=== PATIENT | male | born 1940 | race Caucasian/White ===

== ENCOUNTER 2016-10-15 13:41 | Emergency (ER) | payer OTHER ==
[~2016-10-15] VITALS: Ht 182.9 cm; Wt 118.0 kg
[~2016-10-15 13:41] MED LIST: LORA0.5T PO; MAGN500T4 PO; ST J81CH PO; TYLE500T PO; ULTR50TA PO
[2016-10-15 13:43] VITALS: BP 169/99; PULSE 89; RESP 17; TEMP 97.8; O2SAT 99
--- NOTE | 2016-10-15 14:12 | PD ---
Physical Exam Date Seen by Provider: Oct 15, 2016 Time Seen by Provider: 14:10 Narrative 76 year old male presents to the emergency department after a trip and fall. Patient hit his head. He reports laceration to the forehead. He also has low back pain. No LOC. Patient is awaiting bed placement. Data Data Last Documented VS Vital Signs Date Time Temp Pulse Resp B/P Pulse Ox O2 Delivery O2 Flow Rate FiO2 10/15/16 13:43 97.8 89 17 169/99 99 MDM Supervised Visit with TERRENCE: Cristela Mondragon Oct 15, 2016 14:12
--- NOTE | 2016-10-15 14:26 | PD ---
HPI Chief Complaint: Fall Time Seen by Provider: 14:19 Travel History International Travel<30 days: No Contact w/Intl Traveler<30days: No Traveled to known affect area: No History of Present Illness HPI 76-year-old male here with complaint of laceration after fall. Patient tripped and fell, falling forward and hitting his forehead. No LOC. He denies any headache, nausea vomiting. No neck pain. He notes chronic low back pain which is slightly worse but he has not had to take anything for it. No numbness or tingling or loss of function. Patient has laceration above the left eyebrow prompting ER visit. PFSH Past Medical History Hx Anticoagulant Therapy: Yes (ASPIRIN 81 MG NIGHTLY) Anxiety: Yes High Cholesterol: Yes Diminished Hearing: No Hypertension: Yes Past Surgical History Tonsillectomy: Yes Social History Alcohol Use: No Tobacco Use: No Substance Use: No Allergies-Medications (Allergen,Severity, Reaction): Coded Allergies: No Known Allergies (Verified , 10/15/16) Reported Meds & Prescriptions Reported Meds & Active Scripts Active Reported Ultram (Tramadol HCl) 50 Mg Tab 50 Mg PO Q4H PRN Lorazepam 0.5 Mg Tab 0.5 Mg PO HS Magnesium 500 Mg Tab 500 Mg PO DAILY Tylenol (Acetaminophen) 500 Mg Tab 500 Mg PO TID Aspirin 81 mg chewable (Aspirin) 81 Mg Chw 81 Mg PO DAILY Review of Systems Except as stated in HPI: all other systems reviewed are Neg Physical Exam Narrative GENERAL: Elderly male in no acute distress SKIN: Focused skin assessment warm/dry. HEAD: Laceration above left eyebrow Normocephalic. EYES: Pupils equal and round. No scleral icterus. No injection or drainage. ENT: No nasal bleeding or discharge. Mucous membranes pink and moist. NECK: Up without midline tenderness CARDIOVASCULAR: Regular rate and rhythm. RESPIRATORY: No accessory muscle use. GASTROINTESTINAL: Obese MUSCULOSKELETAL: No midline tenderness to palpation of thoracic or lumbar spine. Moves all extremity's normally. NEUROLOGICAL: Awake and alert. No obvious cranial nerve deficits. Motor grossly within normal limits. Normal speech. PSYCHIATRIC: Appropriate mood and affect; insight and judgment normal. Data Data Last Documented VS Vital Signs Date Time Temp Pulse Resp B/P Pulse Ox O2 Delivery O2 Flow Rate FiO2 10/15/16 13:43 97.8 89 17 169/99 99 Orders Lidocai-Epi 1%-1:100,000 Inj (Xylocaine- (10/15/16 14:30) MDM Medical Decision Making Medical Screen Exam Complete: Yes Emergency Medical Condition: Yes Medical Record Reviewed: Yes Differential Diagnosis 76-year-old male here with complaint of laceration after fall. Fall was mechanical. Patient did not have LOC and I would not obtain imaging to evaluate for skull fracture or ICH. He has obvious laceration which will require repair. He does complain of some low back pain but this is chronic and not much worse than his baseline pain without midline tenderness palpation and I would not image for fracture. Narrative Course Laceration repaired, patient discharged home. Diagnosis Primary Impression: Laceration of forehead, left, complicated Qualified Code: S01.81XA - Laceration of forehead, left, complicated, initial encounter Additional Impression: Fall Qualified Code: W19.XXXA - Fall, initial encounter Referrals: Primary Care Physician 1 week Patient Instructions: General Instructions, Laceration (ED) Additional Instructions: Suture removal in 7-10 days Med/Other Pt SpecificInfo: No Change to Meds Disposition: 01 DISCHARGE HOME Condition: Stable Daria Finnegan MD Oct 15, 2016 14:26
[2016-10-15] MEDS ORDERED: LIDOCAINE 1%/EPINEPHrine 1:100,000 SOLN 20 ML VIAL INFIL ONE (14:30)
--- NOTE | 2016-10-15 15:02 | PD ---
Physical Exam Time Seen by Provider: 15:01 Narrative I repaired the laceration to the left eyebrow. Data Data Last Documented VS Vital Signs Date Time Temp Pulse Resp B/P Pulse Ox O2 Delivery O2 Flow Rate FiO2 10/15/16 13:43 97.8 89 17 169/99 99 Orders Lidocai-Epi 1%-1:100,000 Inj (Xylocaine- (10/15/16 14:30) MDM Supervised Visit with TERRENCE: Yes Narrative Course I repaired the laceration to the left eyebrow. See my procedure note. Procedures Procedure Narrative LACERATION LOCATION: Left eyebrow LENGTH: 2.5cm NUMBER OF STITCHES/QUYEN: 6 simple interrupted stitches REPAIR: The area of the laceration was prepped with Betadine and sterilely draped. The laceration was infiltrated with 1% lidocaine with epinephrine. The wound was copiously irrigated and explored without evidence of foreign body, tendon injury or neurovascular injury. The wound was closed using 5-0 Prolene. This was a single layer repair. A sterile dressing was applied. The patient was advised to keep the dressing clean and dry. Patient tolerated the procedure well. Diagnosis Primary Impression: Laceration of forehead, left, complicated Qualified Code: S01.81XA - Laceration of forehead, left, complicated, initial encounter Additional Impression: Fall Qualified Code: W19.XXXA - Fall, initial encounter Referrals: Primary Care Physician 1 week Patient Instructions: General Instructions, Laceration (ED) Departure Forms: Tests/Procedures Additional Instruction: Suture removal in 7-10 days Disposition: 01 DISCHARGE HOME Condition: Stable Heidi Morales Oct 15, 2016 15:02
[2016-10-15 15:18] VITALS: BP 150/74
== END 2016-10-15 15:23 | disposition home or self-care (01) ==
LOC: NEPD 13:41
DX: S01.81XA Laceration without foreign body of other part of head, initial encounter (principal); M54.5 Low back pain; G89.29 Other chronic pain; I10 Essential (primary) hypertension; W01.0XXA Fall on same level from slipping, tripping and stumbling without subsequent striking against object, initial encounter; Z79.01 Long term (current) use of anticoagulants
CPT/HCPCS: 12011

== ENCOUNTER 2016-10-21 12:47 | Emergency (ER) | payer OTHER ==
[~2016-10-21] VITALS: Ht 180.3 cm; Wt 120.0 kg
[~2016-10-21 12:47] MED LIST changes: -LORA0.5T PO
[2016-10-21 12:49] VITALS: BP 170/96; PULSE 90; RESP 24; TEMP 97.5; O2SAT 96
--- NOTE | 2016-10-21 13:23 | PD ---
Physical Exam Time Seen by Provider: 13:20 Narrative 76 yo M c/o low back pain and continued concussion after fall on Fridays. Evaluated here on Tuesday after fall. Reports nausea w/o vomiting. Denies anticoagulants. VSS Seen in triage, awaiting bed placement. Data Data Last Documented VS Vital Signs Date Time Temp Pulse Resp B/P Pulse Ox O2 Delivery O2 Flow Rate FiO2 10/21/16 12:49 97.5 90 24 170/96 96 Room Air [facility] Supervised Visit with TERRENCE: Heidi Rios Oct 21, 2016 13:23
[2016-10-21] MEDS ORDERED: TRAM50TA PO ×2 (13:51→15:05)
[2016-10-21] MEDS ORDERED: TYLE325T PO (13:51)
[2016-10-21] MEDS ORDERED: MAGN100T2 PO (13:51)
[2016-10-21] MEDS ORDERED: B12-1CHW CHEW (13:51)
--- NOTE | 2016-10-21 14:44 | RADRPT ---
EXAM DATE/TIME: 10/21/2016 14:29 [facility] COMPARISON: CT BRAIN W/O CONTRAST, February 28, 2016, 18:18. INDICATIONS : Fall last Tuesday; laceration to left supraorbital area; dizziness and unsteady gait. RADIATION DOSE: 45.21 CTDIvol (mGy) MEDICAL HISTORY : Cardiovascular disease. Hypertension. SURGICAL HISTORY : Tonsillectomy. ENCOUNTER: Initial ACUITY: 4 - 6 days PAIN SCALE: 0/10 LOCATION: cranial TECHNIQUE: Multiple contiguous axial images were obtained of the head. Using automated exposure control and adj ustment of the mA and/or kV according to patient size, radiation dose was kept as low as reasonably a chievable to obtain optimal diagnostic quality images. FINDINGS: CEREBRUM: The ventricles are normal for age. No evidence of midline shift, mass lesion, hemorrhage or acute in farction. No extra-axial fluid collections are seen. POSTERIOR FOSSA: The cerebellum and brainstem are intact. The 4th ventricle is midline. The cerebellopontine angle i s unremarkable. EXTRACRANIAL: The visualized portion of the orbits is intact. SKULL: The calvaria is intact. No evidence of skull fracture. CONCLUSION: Normal examination. Gene Oleary MD on October 21, 2016 at 14:42 Board Certified Radiologist. This report was verified electronically.
--- NOTE | 2016-10-21 15:00 | RADRPT ---
EXAM DATE/TIME: 10/21/2016 14:40 [facility] COMPARISON: No previous studies available for comparison. INDICATIONS : Lower back pain after fall. MEDICAL HISTORY : None. SURGICAL HISTORY : None. ENCOUNTER: Initial ACUITY: 1 week PAIN SCORE: 10/10 LOCATION: Right Lower back. FINDINGS: There are five non-rib bearing vertebral bodies. The vertebral bodies are in normal alignment withou t evidence of subluxation or scoliosis. The disc spaces are maintained. The posterior elements are intact without evidence of spondylolysis. The pedicles are intact. Bony mineralization is normal. No fracture is identified. CONCLUSION: Unremarkable examination of the lumbar spine. Flowing osteophytes across the lumbar spine anteriorly. Gene Oleary MD on October 21, 2016 at 14:58 Board Certified Radiologist. This report was verified electronically.
--- NOTE | 2016-10-21 15:05 | PD ---
HPI Chief Complaint: Back/ Neck Pain or Injury Time Seen by Provider: 14:00 Travel History International Travel<30 days: No Contact w/Intl Traveler<30days: No Traveled to known affect area: No History of Present Illness HPI This 76 year-old man who presents to the emergency department complaining of back pain and head pain after fall. He was seen about 6 days ago with injuries from a fall. He had a laceration to his head repaired. He is on baby aspirin every day. They didn't think this they noted some exacerbation of his chronic back pain at that point. No imaging done then. Complains now that he is worried he had a concussion and has worsening low back pain. No neck pain. No other complaints. History Past Medical History Narrative Medical Hyperlipidemia Hypertension on anxiety Tetanus Vaccination: Never Vaccinated Social History Alcohol Use: No Tobacco Use: No Allergies-Medications (Allergen,Severity, Reaction): Coded Allergies: No Known Allergies (Verified , 10/21/16) Reported Meds & Prescriptions Reported Meds & Active Scripts Active Reported Tramadol (Tramadol HCl) 50 Mg Tab 50 Mg PO Q8H PRN Magnesium Citrate 100 Mg Tab 100 Mg PO DAILY PRN [id number] (Methylcobalamin) 1 Mg Chew 1 Mg CHEW DAILY Tylenol (Acetaminophen) 325 Mg Tab 500 Mg PO HS Review of Systems Except as stated in HPI: all other systems reviewed are Neg Physical Exam Narrative GENERAL: 76 human, no acute distress. SKIN: Focused skin assessment warm/dry. HEAD: Normocephalic, atraumatic. EYES: Pupils equal and round. No scleral icterus. No injection or drainage. ENT: No nasal bleeding or discharge. Mucous membranes pink and moist. Laceration of her left brow is been repaired. NECK: Trachea midline. No JVD. No midline tenderness. Full range of motion. CARDIOVASCULAR: Regular rate and rhythm. No murmur appreciated. RESPIRATORY: No accessory muscle use. Clear to auscultation. Breath sounds equal bilaterally. GASTROINTESTINAL: Abdomen soft, non-tender, nondistended. Hepatic and splenic margins not palpable. MUSCULOSKELETAL: No obvious deformities. Slight tenderness in the left back. NEUROLOGICAL: Awake and alert. No obvious cranial nerve deficits. Motor grossly within normal limits. Normal speech. Data Data Last Documented VS Vital Signs Date Time Temp Pulse Resp B/P Pulse Ox O2 Delivery O2 Flow Rate FiO2 10/21/16 13:43 18 10/21/16 12:49 97.5 90 170/[address] Brain W/O Iv Contrast(Rout) (10/21/16 ) Spine, Lumbar Comp W/Obliq (10/21/16 ) MDM Medical Decision Making Medical Screen Exam Complete: Yes Emergency Medical Condition: Yes Interpretation(s) Head CT negative. Lumbar spine x-ray: Negative Differential Diagnosis Head injury, back injury, other Narrative Course Medical decision-making Sinus x-ray presents with head pain and back pain after a fall. Doubt fracture or bony injury. We will obtain imaging. Outpatient follow-up. Diagnosis Primary Impression: Fall Additional Impression: Back pain Additional Instructions: Follow-up with your primary doctor in the next 2-4 days. Return to the emergency department for any new or worsening symptoms. Disposition: 01 DISCHARGE HOME Condition: Stable Gene Aragon MD Oct 21, 2016 15:05
== END 2016-10-21 15:49 | disposition home or self-care (01) ==
LOC: NEPD 12:47
DX: M54.9 Dorsalgia, unspecified (principal); E78.5 Hyperlipidemia, unspecified
CPT/HCPCS: 70450; 72110

== ENCOUNTER 2017-02-25 12:41 | Emergency (ER) | payer OTHER ==
[~2017-02-25] VITALS: Ht 180.3 cm; Wt 118.0 kg
[~2017-02-25 12:41] MED LIST changes: +B12-1CHW CHEW; +MAGN100T2 PO; -MAGN500T4 PO; -ST J81CH PO; +TRAM50TA PO; +TYLE325T PO; -TYLE500T PO; -ULTR50TA PO
[2017-02-25 12:48] VITALS: BP 147/89; PULSE 82; RESP 15; TEMP 98.2; O2SAT 99
[2017-02-25] MEDS ORDERED: SODIUM CHLORIDE 0.9% FLUSH 10 ML FLUSH IVF PRN (13:30)
--- NOTE | 2017-02-25 13:31 | PD ---
HPI Chief Complaint: General Weakness Time Seen by Provider: 13:10 Travel History International Travel<30 days: No Contact w/Intl Traveler<30days: No Traveled to known affect area: No History of Present Illness HPI The patient is a 76-year-old male who presents to the emergency department via private vehicle for dizziness with difficulty ambulating. The patient states he had a stroke/TIA several years ago with similar symptoms. The patient states her last several days he has had some dizziness, states he has difficulty ambulating because his legs feel weak bilaterally, and feels like he is off balance with disequilibrium. 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 He denies any dysarthria, chest pain, shortness of breath, nausea, vomiting, or abdominal pain. The patient does feel off balance when he is ambulating and thinks he may have had a stroke. The patient does take an aspirin every night, he is unsure of the dose. PFSH Past Medical History Hx Anticoagulant Therapy: Yes (ASPIRIN 81 MG NIGHTLY) Anxiety: Yes Cardiovascular Problems: Yes (HTN) High Cholesterol: Yes Diminished Hearing: No Hypertension: Yes Past Surgical History Tonsillectomy: Yes Social History Alcohol Use: No Tobacco Use: No Substance Use: No Allergies-Medications (Allergen,Severity, Reaction): Coded Allergies: No Known Allergies (Verified , 02/25/17) Reported Meds & Prescriptions Reported Meds & Active Scripts Active Tramadol (Tramadol HCl) 50 Mg Tab 50 Mg PO Q6H PRN Reported Tramadol (Tramadol HCl) 50 Mg Tab 50 Mg PO Q8H PRN Magnesium Citrate 100 Mg Tab 100 Mg PO DAILY PRN [id number] (Methylcobalamin) 1 Mg Chew 1 Mg CHEW DAILY Tylenol (Acetaminophen) 325 Mg Tab 500 Mg PO HS Review of Systems Except as stated in HPI: all other systems reviewed are Neg General / Constitutional: No: Fever Eyes: No: Visual changes HENT: Positive: Lightheadedness, No: Headaches Cardiovascular: No: Chest Pain or Discomfort Respiratory: No: Shortness of Breath Gastrointestinal: No: Nausea, Vomiting, Abdominal Pain Genitourinary: No: Dysuria Musculoskeletal: Positive: Weakness Neurologic: Positive: Dizziness, Ataxia, No: Change in Mentation Physical Exam Narrative GENERAL: Awake, alert, pleasant 76-year-old male who appears his stated age and is in no acute respiratory distress. SKIN: Focused skin assessment warm/dry. HEAD: Atraumatic. Normocephalic. EYES: Pupils equal and round. No scleral icterus. No injection or drainage. ENT: No nasal bleeding or discharge. Mucous membranes pink and moist. NECK: Trachea midline. No JVD. CARDIOVASCULAR: Regular rate and rhythm. No murmur appreciated. RESPIRATORY: No accessory muscle use. Clear to auscultation. Breath sounds equal bilaterally. GASTROINTESTINAL: Abdomen soft, obese, no rebound tenderness. MUSCULOSKELETAL: No obvious deformities. No clubbing. No cyanosis. No edema. NEUROLOGICAL: Awake and alert. No obvious cranial nerve deficits. Motor grossly within normal limits. Normal speech. Patient is alert and oriented 4. No dysarthria noted. No drift of the upper extremities. He is only able to raise both legs off the bed approximately 1 inch. He has difficulty performing heel to chin secondary to bilateral lower extremity weakness and limited range of motion which she chooses to bilateral hip pain with previous surgery on the left hip. Finger to nose is normal. Sensation is symmetric on the face, arms, and legs. PSYCHIATRIC: Appropriate mood and affect; insight and judgment normal. Data Data Last Documented VS Vital Signs Date Time Temp Pulse Resp B/P Pulse Ox O2 Delivery O2 Flow Rate FiO2 02/25/17 13:34 95 Room Air 02/25/17 12:48 98.2 82 15 147/89 Orders Electrocardiogram (02/25/17 13:22) Prothrombin Time / Inr (Pt) (02/25/17 13:22) Act Partial Throm Time (Ptt) (02/25/17 13:22) Complete Blood Count With Diff (02/25/17 13:22) Comprehensive Metabolic Panel (02/25/17 13:22) Creatine Kinase (Cpk) (02/25/17 13:22) Troponin I (02/25/17 13:22) Urinalysis - C+S If Indicated (02/25/17 13:22) Ct Brain W/O Iv Contrast(Rout) (02/25/17 13:22) Ecg Monitoring (02/25/17 13:22) Iv Access Insert/Monitor (02/25/17 13:22) Oximetry (02/25/17 13:22) Sodium Chloride 0.9% Flush (Ns Flush) (02/25/17 13:30) Mri Brain W/O Contrast (02/25/17 ) Labs Laboratory Tests Test 02/25/17 02/25/17 13:43 13:45 Sodium Level 141 MEQ/L Potassium Level 4.5 MEQ/L Chloride Level 108 MEQ/L Carbon Dioxide Level 25.7 MEQ/L Anion Gap 7 MEQ/L Blood Urea Nitrogen 19 MG/DL Creatinine 1.34 MG/DL Estimat Glomerular Filtration 52 ML/MIN Rate Random Glucose 96 MG/DL Calcium Level 8.2 MG/DL Total Bilirubin 0.5 MG/DL Aspartate Amino Transf 16 U/L (AST/SGOT) Alanine Aminotransferase 16 U/L (ALT/SGPT) Alkaline Phosphatase 91 U/L Total Creatine Kinase 106 U/L Troponin I LESS THAN 0.02 NG/ML Total Protein 6.7 GM/DL Albumin 3.5 GM/DL White Blood Count 6.2 TH/MM3 Red Blood Count 4.26 MIL/MM3 Hemoglobin 13.5 GM/DL Hematocrit 40.9 % Mean Corpuscular Volume 95.9 FL Mean Corpuscular Hemoglobin 31.6 PG Mean Corpuscular Hemoglobin 32.9 % Concent Red Cell Distribution Width 14.0 % Platelet Count 209 TH/MM3 Mean Platelet Volume 8.5 FL Neutrophils (%) (Auto) 74.3 % Lymphocytes (%) (Auto) 15.7 % Monocytes (%) (Auto) 6.3 % Eosinophils (%) (Auto) 2.4 % Basophils (%) (Auto) 1.3 % Neutrophils # (Auto) 4.6 TH/MM3 Lymphocytes # (Auto) 1.0 TH/MM3 Monocytes # (Auto) 0.4 TH/MM3 Eosinophils # (Auto) 0.1 TH/MM3 Basophils # (Auto) 0.1 TH/MM3 CBC Comment DIFF FINAL Differential Comment Prothrombin Time 11.2 SEC Prothromb Time International 1.0 RATIO Ratio Activated Partial 25.7 SEC Thromboplast Time MDM Medical Decision Making Medical Screen Exam Complete: Yes Emergency Medical Condition: Yes Medical Record Reviewed: Yes Interpretation(s) EKG reveals normal sinus rhythm with a rate of 78. RSR prime in V1 with a QRS of 106 ms consistent with incomplete right bundle branch block. Last Impressions Head CT 02/25/17 1322 Signed Impressions: Service Date/Time: Saturday, February 25, 2017 14:48 - CONCLUSION: 1. No acute hemorrhage, mass or infarction. 2. Small air-fluid level in left maxillary sinus. This could indicate acute sinusitis. Ziyad Luevano MD Brain MRI 02/25/17 0000 Signed Impressions: Service Date/Time: Saturday, February 25, 2017 13:59 - CONCLUSION: 1. No acute hemorrhage, mass or evidence of infarction. 2. Atrophy and mild chronic small vessel ischemic change. Ziyad Luevano MD Laboratory Tests Test 02/25/17 02/25/17 13:43 13:45 Sodium Level 141 MEQ/L Potassium Level 4.5 MEQ/L Chloride Level 108 MEQ/L Carbon Dioxide Level 25.7 MEQ/L Anion Gap 7 MEQ/L Blood Urea Nitrogen 19 MG/DL Creatinine 1.34 MG/DL Estimat Glomerular Filtration 52 ML/MIN Rate Random Glucose 96 MG/DL Calcium Level 8.2 MG/DL Total Bilirubin 0.5 MG/DL Aspartate Amino Transf 16 U/L (AST/SGOT) Alanine Aminotransferase 16 U/L (ALT/SGPT) Alkaline Phosphatase 91 U/L Total Creatine Kinase 106 U/L Troponin I LESS THAN 0.02 NG/ML Total Protein 6.7 GM/DL Albumin 3.5 GM/DL White Blood Count 6.2 TH/MM3 Red Blood Count 4.26 MIL/MM3 Hemoglobin 13.5 GM/DL Hematocrit 40.9 % Mean Corpuscular Volume 95.9 FL Mean Corpuscular Hemoglobin 31.6 PG Mean Corpuscular Hemoglobin 32.9 % Concent Red Cell Distribution Width 14.0 % Platelet Count 209 TH/MM3 Mean Platelet Volume 8.5 FL Neutrophils (%) (Auto) 74.3 % Lymphocytes (%) (Auto) 15.7 % Monocytes (%) (Auto) 6.3 % Eosinophils (%) (Auto) 2.4 % Basophils (%) (Auto) 1.3 % Neutrophils # (Auto) 4.6 TH/MM3 Lymphocytes # (Auto) 1.0 TH/MM3 Monocytes # (Auto) 0.4 TH/MM3 Eosinophils # (Auto) 0.1 TH/MM3 Basophils # (Auto) 0.1 TH/MM3 CBC Comment DIFF FINAL Differential Comment Prothrombin Time 11.2 SEC Prothromb Time International 1.0 RATIO Ratio Activated Partial 25.7 SEC Thromboplast Time Differential Diagnosis Differential diagnosis includes CVA, TIA, hyponatremia, radiculopathy, cauda equina, Guillain-Lilly, deconditioning. Narrative Course IV was established, labs are drawn and sent, and the patient was placed on cardiac telemetry monitoring and continuous pulse oximetry monitoring. EKG was ordered and interpreted. CT the brain was ordered to rule out ICH. MRI of the brain was ordered to rule out cerebellar infarct. CT the brain was negative except for chronic changes. MRI the brain is negative for acute infarct. Sodium is within normal limits. I do discussion with the patient, he states he has a history of inner ear dizziness which was improved with meclizine years ago , is requesting a meclizine prescription. The patient will be provided a copy of his CT results and MRI results at discharge, is advised to follow-up with his primary physician. Patient agrees and understands. He is stable for outpatient follow-up. Diagnosis Primary Impression: Dizziness Patient Instructions: General Instructions Additional Instructions: Medications as directed. Follow-up with your primary physician. Please provide the patient a copy of his CT results and MRI results at discharge. Return if symptoms worsen or progress. Med/Other Pt SpecificInfo: Prescription(s) given Scripts Meclizine 25 Mg Tab25 Mg PO TID PRN (VERTIGO) #15 TAB Ref 0 Prov:Roberto Ríos MD 02/25/17 Disposition: 01 DISCHARGE HOME Condition: Stable Roberto Ríos MD Feb 25, 2017 13:31
[2017-02-25 13:34] VITALS: O2SAT 95
[2017-02-25 13:58] LABS: AUTOMATED NEUTROPHIL # 4.6 TH/MM3 (1.8-7.7); BASOPHIL # 0.1 TH/MM3 (0-0.2); BASOPHIL % 1.3 % (0.0-2.0); EOSINOPHIL # 0.1 TH/MM3 (0-0.4); EOSINOPHIL % 2.4 % (0.0-4.0); HEMATOCRIT 40.9 % (39.0-51.0); HEMO FLAGS DIFF FINAL; LYMPH % 15.7 % (9.0-44.0); MEAN CELL VOLUME 95.9 FL (80.0-100.0); MEAN CORPUSCULAR HEMOGLOBIN 31.6 PG (27.0-34.0); MEAN CORPUSCULAR HGB CONC 32.9 % (32.0-36.0); MONO % 6.3 % (0.0-8.0); NEUT % 74.3 % (16.0-70.0); PLATELET COUNT 209 TH/MM3 (150-450); RED BLOOD COUNT 4.26 MIL/MM3 (4.50-5.90); WHITE BLOOD COUNT 6.2 TH/MM3 (4.0-11.0)
[2017-02-25 14:06] LABS: APTT (PATIENT) 25.7 SEC (24.3-30.1); PROTHROMBIN TIME - PATIENT 11.2 SEC (9.8-11.6)
[2017-02-25 14:15] LABS: ALT (GPT) 16 U/L (12-78); ANION GAP 7 MEQ/L (5-15); AST (GOT) 16 U/L (15-37); BICARBONATE 25.7 MEQ/L (21.0-32.0); BLOOD UREA NITROGEN 19 MG/DL (7-18); CHLORIDE 108 MEQ/L (98-107); GLOMERULAR FILTRATION RATE 52 ML/MIN (>89); POTASSIUM 4.5 MEQ/L (3.5-5.1); SODIUM (NA) 141 MEQ/L (136-145)
[2017-02-25 14:17] LABS: ALKALINE PHOSPHATASE 91 U/L (45-117); CREATINE KINASE 106 U/L (39-308); TOTAL BILIRUBIN ADULT 0.5 MG/DL (0.2-1.0)
--- NOTE | 2017-02-25 14:51 | RADRPT ---
EXAM DATE/TIME: 02/25/2017 13:59 [facility] COMPARISON: CT BRAIN W/O CONTRAST, October 21, 2016, 14:29. INDICATIONS : Dizziness. MEDICAL HISTORY : Hypertension. SURGICAL HISTORY : Left hip replacement. ENCOUNTER: Initial ACUITY: 1 day PAIN SCORE: 0/10 LOCATION: TECHNIQUE: Multiplanar, multisequence MRI of the brain was performed without contrast. FINDINGS: CEREBRUM: The ventricles are normal for age with moderate atrophic change. No evidence of midline shift, mass l esion, hemorrhage or acute infarction. No extraaxial fluid collections are seen. The pituitary glan d and suprasellar cistern are normal in configuration. WHITE MATTER: On flair weighted images there is increased signal in the periventricular white matter and centrum se miovale characteristic of mild chronic small vessel ischemic change. POSTERIOR FOSSA: The cerebellum and brainstem are intact. The 4th ventricle is midline. The cerebellopontine angle is unremarkable. The cerebellar tonsils are normal in position. DIFFUSION IMAGING: No focal areas of restricted diffusion are seen. No evidence of acute infarction. EXTRACRANIAL: The visualized portions of the orbits and paranasal sinuses are unremarkable. CONCLUSION: 1. No acute hemorrhage, mass or evidence of infarction. 2. Atrophy and mild chronic small vessel ischemic change. Ziyad Luevano MD on February 25, 2017 at 14:48 Board Certified Radiologist. This report was verified electronically.
--- NOTE | 2017-02-25 15:00 | RADRPT ---
EXAM DATE/TIME: 02/25/2017 14:48 [facility] COMPARISON: CT BRAIN W/O CONTRAST, October 21, 2016, 14:29. INDICATIONS : Unsteady gait since a fall a few weeks ago. RADIATION DOSE: 56.35 CTDIvol (mGy) MEDICAL HISTORY : Cardiovascular disease. Hypertension. SURGICAL HISTORY : None. ENCOUNTER: Initial ACUITY: 1 day PAIN SCALE: 0/10 LOCATION: cranial TECHNIQUE: Multiple contiguous axial images were obtained of the head. Using automated exposure control and adj ustment of the mA and/or kV according to patient size, radiation dose was kept as low as reasonably a chievable to obtain optimal diagnostic quality images. DICOM format image data is available electro nically for review and comparison. FINDINGS: CEREBRUM: The ventricles are normal for age. No evidence of midline shift, mass lesion, hemorrhage or acute in farction. No extra-axial fluid collections are seen. POSTERIOR FOSSA: The cerebellum and brainstem are intact. The 4th ventricle is midline. The cerebellopontine angle i s unremarkable. EXTRACRANIAL: The visualized portion of the orbits is intact. A small air-fluid level is noted in the left maxillar y sinus. SKULL: The calvaria is intact. No evidence of skull fracture. CONCLUSION: 1. No acute hemorrhage, mass or infarction. 2. Small air-fluid level in left maxillary sinus. This could indicate acute sinusitis. Ziyad Luevano MD on February 25, 2017 at 14:57 Board Certified Radiologist. This report was verified electronically.
[2017-02-25] MEDS ORDERED: MECL-62 PO (15:40)
--- NOTE | 2017-02-26 16:05 | EKG ---
Date Performed: 02/25/2017 Time Performed: 14:40:41 PTAGE: 76 years EKG: Sinus rhythm LEFT AXIS DEVIATION Compared to prior tracing no significant change ABNORMAL ECG PREVIOUS TRACING : 01/28/2013 12.07 DOCTOR: Bonifacio Camarillo Interpretating Date/Time 02/26/2017 16:02:36
== END 2017-02-25 16:24 | disposition home or self-care (01) ==
LOC: NEPE 12:41
DX: R42 Dizziness and giddiness (principal); R53.1 Weakness; I10 Essential (primary) hypertension; E78.00 Pure hypercholesterolemia, unspecified; F41.9 Anxiety disorder, unspecified; R94.31 Abnormal electrocardiogram [ECG] [EKG]
CPT/HCPCS: 70450; 70551; 80053; 82550; 84484; 85025; 85610; 85730; 93005; 99285